=== PATIENT | male | born 1995 | race Caucasian/White ===

== ENCOUNTER 2022-07-13 14:38 | Emergency (ER) | payer BC, OTHER ==
[~2022-07-13] VITALS: Ht 177.8 cm; Wt 81.6 kg
--- NOTE | 2022-07-13 14:40 | NUR ---
BIBS FOR ABSCESS ON BACK. A/O X 3, ABLE TO MAKE NEEDS KNOWN, TOLERATING WELL ON ROOM AIR.
[2022-07-13] MEDS ORDERED: CLIN300C12 PO (15:12)
--- NOTE | 2022-07-13 15:16 | NUR ---
EMT AT BEDSIDE FOR ABSCESS TREATMENT
--- NOTE | 2022-07-13 15:20 | NUR ---
Patient discharged to home in stable condition. Written and verbal after care instructions given. Patient verbalizes understanding of instruction.
[2022-07-13 15:21] VITALS: BP 155/72
== END 2022-07-13 15:21 | disposition home or self-care (01) ==
LOC: ER 14:51
DX: L02.212 Cutaneous abscess of back [any part, except buttock and flank] (principal); Z88.8 Allergy status to other drugs, medicaments and biological substances